=== PATIENT | male | born 1945 | race Caucasian/White ===

== ENCOUNTER → 2021-11-24 | Outpatient (CLI) | payer MEDICARE | END | disposition home or self-care (01) | LOC: LABWHC1 10:04 | PROVIDERS: ATTEND Urology | DX: R97.20 Elevated prostate specific antigen [PSA] (principal) | CPT/HCPCS: 36415; 84153 ==

== ENCOUNTER 2024-05-14 09:58 | Day surgery (SDC) | payer MEDICARE ==
--- NOTE | 2024-05-13 08:35 | P.GSHP ---
History of Present Illness H&P Date: 05/13/24 Chief Complaint: Prostate Cancer The patient is a 79-year-old white male with recently diagnosed prostate cancer. His prostate volume was 79 cc. His most recent PSA level was 6.93. 6 of 12 biopsies of show no evidence of Nicolás 7 adenocarcinoma. He has elected to be treated with IMRT and now comes for Barrigel implant to reduce the risk of rectal toxicity. 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, prostate cancer History of Any Multi-Drug Resistant Organisms: None Reported Additional Past Surgical History / Comment(s): mejia cataracts removed, colonoscopies Past Anesthesia/Blood Transfusion Reactions: No Reported Reaction Smoking Status: Former smoker Medications and Allergies Home Medications Medication Instructions Recorded Confirmed Type Multivit-Mins/Iron/Folic/Lycop 1 tab PO DAILY 12/28/15 05/12/24 History [Centrum Men's Tablet] Ubidecarenone [Co Q-10] 100 mg PO DAILY 12/28/15 05/12/24 History Aspirin 81 mg PO DAILY 05/12/24 05/12/24 History Atorvastatin [Lipitor] 20 mg PO HS 05/12/24 05/12/24 History Allergies Allergy/AdvReac Type Severity Reaction Status Date / Time amoxicillin Allergy Rash/Hives, Verified 05/12/24 11:23 chills Surgical - Exam - General well developed, well nourished, no distress - Respiratory normal respiratory effort - Genitourinary normal penis with no external lesions, testicles non-tender - Rectum Rectum: normal sphincter tone, no masses, other (prostate enlarged but smooth) - Psychiatric oriented to time, oriented to person, oriented to place, speech is normal, memory intact Assessment and Plan (1) Malignant neoplasm of prostate Status: Acute Code(s): C61 - MALIGNANT NEOPLASM OF PROSTATE SNOMED Code(s): 816427964 Plan: The Barrigel implant has been reviewed in detail with the patient. He understands that the rationale for this is to create separation between the prostate and rectum, thus reducing the risk of radiation proctitis. The material begins to breakdown over time and is reabsorbed by the body. Risks include anesthesia, bleeding, infection, and perineal discomfort. He understands that if the rectal wall is perforated the procedure will need to be aborted.
[~2024-05-14 09:58] MED LIST: LIDOCAINE 1% (10MG/ML) FOR IV START INTRADERMA PRN; ONDANSETRON 4 MG/2 ML VIAL IVP PRN; fentaNYL (PF) 50 MCG/ML 2 ML AMP IV PRN
[2024-05-14] MEDS: LACTATED RINGERS 1,000 ML IV SCH (10:36)
[2024-05-14] MEDS: IV FLUID CONTINUATION 1,000 ML IV ONE (10:38)
[2024-05-14 10:41] VITALS: TEMP 97.4
[2024-05-14] MEDS ORDERED: LIDOCAINE 1% INJ 10MG/ML (20 ML MDV) ONE (11:30)
[2024-05-14] MEDS ORDERED: fentaNYL (PF) 50 MCG/ML 2 ML AMP ONE (11:30)
[2024-05-14] MEDS ORDERED: PROPOFOL 10 MG/ML 20 ML VIAL IV ONE (11:30)
[2024-05-14] MEDS ORDERED: PHENYLEPHRINE-0.9% NACL SYG 1,000 MCG/10 ML SYRINGE ONE (11:30)
[2024-05-14] MEDS ORDERED: MIDAZOLAM 2 MG/2 ML VIAL ONE (11:30)
[2024-05-14] MEDS: LIDOCAINE 2% INJ 20 MG/ML SQ ONE ×2 (11:44)
--- NOTE | 2024-05-14 12:09 | P.OP ---
Date of Procedure: 05/14/24 Preoperative Diagnosis: Adenocarcinoma of the prostate Postoperative Diagnosis: Same Procedure(s) Performed: Barrigel implant Anesthesia: MAC Surgeon: Julio Coronado Estimated Blood Loss (ml): 5 IV fluids (ml): 400 Pathology: none sent Condition: stable Disposition: PACU Indications for Procedure: The patient is a 79-year-old white male with recently diagnosed prostate cancer. His prostate volume was 79 cc. His most recent PSA level was 6.93. 6 of 12 biopsies of show no evidence of Nicolás 7 adenocarcinoma. He has elected to be treated with IMRT and now comes for Barrigel implant to reduce the risk of rectal toxicity. Operative Findings: 7.5 mm separation created. Description of Procedure: The patient was taken to the operating room and placed in the dorsolithotomy position, with his legs supported in Damian stirrups. The external genitalia was prepped and draped sterilely. The Autoniq transrectal ultrasound probe was placed intrarectally. The prostate was imaged. The probe was then placed within the stabilizing stand. A spinal needle was advanced under ultrasonic guidance to the level of the urogenital diaphragm, and lidocaine was used to infiltrate the tissues as the needle was withdrawn. Next, the Barrigel needle was passed through the midline of the perineum, 1-2 cm anterior to the anal opening. The needle was slowly advanced under ultrasonic guidance until the needle tip was located within the fat plane between the prostate and rectum, at the level of the mid prostate gland. The needle was confirmed to be midline on the axial imaging. Barrigel was then slowly injected under ultrasonic guidance. The prostate lift was asymmetric, with greater separation achieved on the left side. The bevel of the needle was rotated, and ultimately the needle was repositioned to achieve greater separation on the right side and midline. All 3 syringes of Barrigel were utilized. 7.5 mm was created between the prostate and rectum, as desired. It should be noted that at no point was there any concern of rectal perforation. The needle was withdrawn, as well as the transrectal ultrasound probe, and the procedure was terminated. The patient tolerated the procedure well and was taken to the recovery room in stable condition.
[2024-05-14 12:44] VITALS: BP 138/63; PULSE 77; RESP 16
== END 2024-05-14 13:09 | disposition home or self-care (01) ==
LOC: OR 09:58
PROVIDERS: ATTEND Urology
DX: C61 Malignant neoplasm of prostate (principal); E78.5 Hyperlipidemia, unspecified; G89.29 Other chronic pain; Z87.891 Personal history of nicotine dependence; Z88.0 Allergy status to penicillin; Z85.828 Personal history of other malignant neoplasm of skin; Z79.82 Long term (current) use of aspirin; Z79.899 Other long term (current) drug therapy
CPT/HCPCS: 55874; J2250; J0690; J2003 ×2; J3010; J2704; J2371